=== PATIENT | female | born 1980 | race African-American/Black ===

== ENCOUNTER 2016-10-18 14:57 | Emergency (ER) | payer MEDICAID ==
[~2016-10-18] VITALS: Ht 162.6 cm; Wt 89.4 kg
[2016-10-18] MEDS ORDERED: BACITRACIN-P28.35 GM TP (15:32)
[2016-10-18] MEDS ORDERED: TYLENOL EXTRA500 MG ORAL (15:32)
[2016-10-18] MEDS ORDERED: AUGMENTIN 875-1 EAC1 ORAL (15:32)
[2016-10-18 15:40] VITALS: BP 112/71
[2016-10-18 15:55] VITALS: BP 112/71
--- NOTE | 2016-10-18 16:50 | Emergency Room Report ---
History of Present Illness General Chief Complaint: Skin Rash/Abscess Source: Patient Present Illness HPI 26-year-old female presents emergency department complaining of 7/10 in severity tenderness to the left thumb with yellow/green discoloration The nail. Patient states that onset of her symptoms was the day after removing hangnail by her teeth. Patient denies fevers, chills, trauma to the finger, rashes, or bruises. Denies CP, Palpitations, LOC, AMS, dizziness, Changes in Vision, Sensation, paresthesias, or a sudden severe headache. Pt states she is UTD with vaccinations. not currently taking medications. Allergies: Coded Allergies: No Known Allergies (Unverified , 10/18/16) Patient History Past Medical History: see triage record Past Surgical History: none Pertinent Family History: none Last Menstrual Period: 7-5 Now: No Reviewed Nursing Documentation: PMH: Agreed, PSxH: Agreed Nursing Documentation-PMH Past Medical History: No Stated History Review of Systems All Other Systems: negative except mentioned in HPI Physical Exam Vital Signs Date Time Temp Pulse Resp B/P Pulse Ox O2 Delivery O2 Flow Rate FiO2 10/18/16 15:31 98.2 106 18 112/71 97 Room Air Sp02 EP Interpretation: reviewed, abnormal - tachycardic General Appearance: no apparent distress, alert, GCS 15, non-toxic Head: normocephalic, atraumatic Eyes: bilateral eye PERRL, bilateral eye normal inspection ENT: hearing grossly normal, normal pharynx, no angioedema, normal voice Neck: full range of motion, supple/symm/no masses Respiratory: lungs clear, normal breath sounds, speaking full sentences Cardiovascular #1: regular rate, rhythm, no edema Musculoskeletal: back normal, gait/station normal, normal range of motion, non- tender Neurologic: alert, oriented x3, responsive, motor strength/tone normal, sensory intact, speech normal Psychiatric: judgement/insight normal, memory normal, mood/affect normal Skin: normal color, no rash, warm/dry, well hydrated, other - swelling, erythema, and yellow/green d/c noted to the lateral aspect of the cuticle line of the left thumb. Lymphatic: no adenopathy Procedures Incision and Drainage Incision and Drainage : Consent: Verbal Site: lateral aspect of the cuticle line of the left thumb. Blade Size: 11 I & D Procedure: betadine prep Wound Location: upper extremity - left thumb Wound's Depth, Shape: superficial Wound Length (cm): 1 Wound Explored: contaminated - purulent drainage was expressed. Anesthesia: other - none Splint Applied?: No Sling Applied?: No Patient Tolerated: Well Complications: None Medical Decision Making PA Attestation Dr. lehman is my supervising Physician whom patient management has been discussed with. Diagnostic Impression: Primary Impression: Paronychia of finger of left hand ER Course 26-year-old female presents emergency department complaining of 7/10 in severity tenderness to the left thumb with yellow/green discoloration The nail. Patient states that onset of her symptoms was the day after removing hangnail by her teeth. Patient denies fevers, chills, trauma to the finger, rashes, or bruises. Denies CP, Palpitations, LOC, AMS, dizziness, Changes in Vision, Sensation, paresthesias, or a sudden severe headache. Pt states she is UTD with vaccinations. not currently taking medications. Ddx considered but are not limited to cellulitis, paronychia, eponychia, ingrown toe nail, fracture, d/L, gout Vital signs: are WNL, pt. is afebrile H&PE are most consistent with right thumb paronychia. ORDERS: none required at this time, the diagnosis is clinical ED INTERVENTIONS: - verbal consent was received . - lesion was cleaned with Betadine prep. - Small incision using a sterile 25g needle to drain the paronychia. pt. tolerated well without complication. - sterile band-aid was then applied afterward. - will d/c pt. with PO abx. DISCHARGE: At this time pt. is stable for d/c to home. Will provide printed patient care instructions, and any necessary prescriptions. Care plan and follow up instructions have been discussed with the patient prior to discharge. Last Vital Signs Date Time Temp Pulse Resp B/P Pulse Ox O2 Delivery O2 Flow Rate FiO2 10/18/16 15:31 98.2 106 18 112/71 97 Room Air Disposition: HOME, SELF-CARE Condition: Stable Scripts Acetaminophen* (TYLENOL EXTRA STRENGTH*) 500 Mg Tablet 500 MG ORAL Q6H, #20 TAB 0 Refills Prov: Ana Luisa Avila 10/18/16 Bacitracin/Polymyxin B Sulfate (BACITRACIN-POLYMYXIN OINTMENT) 28.35 Gm Oint...g. 1 APPLIC TP BID, #28.3 GM Prov: Ana Luisa Avila 10/18/16 Amoxicillin/Potassium Clav 875-125* (AUGMENTIN 875-125 TABLET*) 1 Each Tablet 1 TAB ORAL TWICE A DAY for 7 Days, #14 TAB Prov: Ana Luisa Avila 10/18/16 Referrals: NOT CHOSEN IPA/MD,REFERRING (PCP) Patient Instructions: Paronychia, [id number] Additional Instructions: Take medications as directed. Follow up with a Primary Care Provider in 3-5 days, even if your symptoms have resolved. --Please review list of primary care clinics, if you do not already have a primary care provider Return sooner to ED if new symptoms occur, or current symptoms become worse. - Please note that this Emergency Department Report was dictated using [email or web address] software, occasionally this can lead to erroneous entry secondary to interpretation by the dictation equipment. Ana Luisa Avila Oct 18, 2016 16:50
== END 2016-10-18 16:00 | disposition home or self-care (01) ==
LOC: EMR 15:39
DX: L03.012 Cellulitis of left finger (principal)
CPT/HCPCS: 10060